=== PATIENT | female | born 1935 ===

== ENCOUNTER 2021-02-10 06:52 | Day surgery (SDC) | payer OTHER ==
[~2021-02-10 06:52] MED LIST: FENOFIBRATE50 MG PO; IRBESARTAN-HCT1 EACH PO; LIPITOR20 MG PO
[2021-02-10] MEDS ORDERED: PERCOCET 5-3251 EACH PO (13:28)
== END 2021-02-10 16:45 | disposition home or self-care (01) ==
LOC: CIR.AMB 06:52
PROVIDERS: ATTEND Surgery
DX: K64.8 Other hemorrhoids (principal); K64.4 Residual hemorrhoidal skin tags; Z20.822 Contact with and (suspected) exposure to COVID-19